=== PATIENT | male | born 1990 | race African-American/Black ===

== ENCOUNTER 2017-09-15 22:38 | Emergency (ER) | payer OTHER ==
[~2017-09-15] VITALS: Ht 167.6 cm; Wt 61.2 kg
[~2017-09-15 22:38] MED LIST: ALPRAZOLAM; NOHOMEMEDICATIONS; NORCO 5-325 TA1 EACH PO
[2017-09-15] MEDS ORDERED: ACYCLOVIR 200200 MG PO (23:24)
[2017-09-15] MEDS ORDERED: TRIAMCINOLONE A80 GM TOP (23:24)
[2017-09-15] MEDS ORDERED: KEFLEX500 M1 PO (23:24)
[2017-09-15 23:35] VITALS: BP 126/81
== END 2017-09-15 23:51 | disposition home or self-care (01) ==
LOC: ER 22:38
DX: L03.113 Cellulitis of right upper limb (principal); B00.89 Other herpesviral infection; L30.9 Dermatitis, unspecified; F41.9 Anxiety disorder, unspecified; F17.210 Nicotine dependence, cigarettes, uncomplicated

== ENCOUNTER 2017-10-21 08:01 | Emergency (ER) | payer OTHER ==
[~2017-10-21] VITALS: Ht 177.8 cm; Wt 68.0 kg
[~2017-10-21 08:01] MED LIST changes: +ACYCLOVIR 200200 MG PO; +KEFLEX500 M1 PO; +TRIAMCINOLONE A80 GM TOP
[2017-10-21 08:08] VITALS: BP 130/92
[2017-10-21] MEDS ORDERED: KEFLEX500 M1 PO (09:20)
== END 2017-10-21 09:46 | disposition home or self-care (01) ==
LOC: ER 08:01
DX: L03.011 Cellulitis of right finger (principal); F41.9 Anxiety disorder, unspecified; F17.210 Nicotine dependence, cigarettes, uncomplicated

== ENCOUNTER 2019-10-01 11:48 | Emergency (ER) | payer OTHER ==
[~2019-10-01] VITALS: Ht 167.6 cm; Wt 68.0 kg
[~2019-10-01 11:48] MED LIST changes: +CLOTRIMAZOLE 1%15 G1 TOP; +ERYTHROMYCIN E3.5 G3 OPHTHALMIC; +MEDROLDOSEPACK PO; +PATANOL5 ML OPHTHALMIC
[2019-10-01] MEDS ORDERED: CYCLOGYL2 M1 OPHTHALMIC (13:11)
[2019-10-01] MEDS ORDERED: PRED FORTE 1% EY5 M1 OPHTHALMIC (13:11)
[2019-10-01 13:28] VITALS: BP 141/80
== END 2019-10-01 13:30 | disposition home or self-care (01) ==
LOC: ER 11:48
DX: H20.9 Unspecified iridocyclitis (principal); F17.210 Nicotine dependence, cigarettes, uncomplicated